=== PATIENT | female | born 1945 | race Caucasian/White ===

== ENCOUNTER 2019-03-29 06:22 | Inpatient (IN) | payer MEDICARE ==
[~2019-03-29] VITALS: Ht 165.1 cm; Wt 69.7 kg
--- NOTE | 2019-03-29 06:35 | NUR ---
bib remsa from home where she is recently been staying with her sister, hospice pt, h/x lung and right breast ca. per ems pt sister found her on her bedroom floor with right ankle swelling and bruising. pt a&ox0 at baseline, 12 lead ekg afib, pt has h/x afib. b/p-170/80, hr-100, 90% on 4l n/c, received breathing t/x per remsa and spo2up to 100% on 4ln/c. pt also received fentanyl 100 mcg enroute. monitors applied, siderails up x2, call light within reach, family at bedside
--- NOTE | 2019-03-29 06:53 | NUR ---
report given to kamilah/dereje griffin
[2019-03-29] MEDS ORDERED: HYDR4TAB48 PO (07:41)
[2019-03-29] MEDS ORDERED: OMEP10CA4 PO (07:41)
[2019-03-29] MEDS ORDERED: METR250T PO (07:41)
[2019-03-29] MEDS ORDERED: DILT30TA33 PO (07:41)
[2019-03-29] MEDS ORDERED: HYDR25TA11 PO (07:41)
[2019-03-29] MEDS ORDERED: LORA2VIA6 PO (07:41)
[2019-03-29] MEDS ORDERED: SENN-88 PO (07:41)
[2019-03-29] MEDS ORDERED: CITA10TA4 PO (07:41)
[2019-03-29] MEDS ORDERED: METH10TA2 PO (07:41)
[2019-03-29] MEDS ORDERED: HALDOL (07:42)
--- NOTE | 2019-03-29 08:09 | NUR ---
IV STARTED. PUREWICK PLACED.
[2019-03-29] MEDS ORDERED: FENTANYL PF 100 MCG/2ML ONE ×5 (08:29→22:59)
[2019-03-29] MEDS ORDERED: FENTANYL PF 100 MCG/2ML IV ONE (08:30)
[2019-03-29] MEDS ORDERED: LORazepam 2 MG/ML, 1ML ONE (08:30)
[2019-03-29] MEDS ORDERED: LORazepam 2 MG/ML, 1ML IVPush ONE (08:30)
[2019-03-29] MEDS ORDERED: SODIUM CHLORIDE FLUSH 10ML SYR IVF ONE (08:30)
--- NOTE | 2019-03-29 08:38 | NUR ---
MEDICATED PER EMAR. LAB AT BEDSIDE. PT TO GO TO CT.
[2019-03-29 08:52] LABS: BASOPHILS # (AUTO) 0.04 x10^3/uL (0-0.1); BASOPHILS % (AUTO) 0 % (0-1); EOSINOPHILS % (AUTO) 0 % (1-7); LYMPHOCYTES # (AUTO) 0.47 x10^3/uL (1-3.4); LYMPHOCYTES % (AUTO) 5 % (22-44); MD NO; MEAN CORPUSCULAR HEMOGLOBIN 24.3 pg (27.0-34.8); MEAN CORPUSCULAR HGB CONC 30.7 g/dL (32.4-35.8); MEAN CORPUSCULAR VOLUME 78.9 fL (80-100); MEAN PLATELET VOLUME 7.2 fL (7.4-10.4); MONOCYTES # (AUTO) 0.71 x10^3/uL (0.2-0.8); MONOCYTES % (AUTO) 7 % (2-9); NEUTROPHILS % (AUTO) 88 % (42-75); PLATELET COUNT 509 x10^3/uL (130-400); RED BLOOD COUNT 4.24 x10^6/uL (3.82-5.3); RED CELL DISTRIBUTION WIDTH 16.6 % (9.6-15.2)
[2019-03-29 09:04] LABS: ALANINE AMINOTRANSFERASE 13 U/L (12-78); ALBUMIN 2.7 g/dL (3.4-5.0); ANION GAP 4 mmol/L (5-15); CALCIUM 9.1 mg/dL (8.5-10.1); CHLORIDE 98 mmol/L (98-107); CREATININE 0.52 mg/dL (0.55-1.02)
[2019-03-29 09:06] LABS: ALKALINE PHOSPHATASE 105 U/L (45-117); BILIRUBIN,TOTAL 0.3 mg/dL (0.2-1.0); TOTAL PROTEIN 7.1 g/dL (6.4-8.2)
--- NOTE | 2019-03-29 09:19 | NUR ---
REPORT GIVEN TO JEAN-CLAUDE WONG ON ONCOLOGY.
--- NOTE | 2019-03-29 09:28 | NUR ---
UA COLLECTED. PT TO GO UPSTAIRS.
[2019-03-29 09:50] LABS: MICROSCOPIC AUTO
[2019-03-29 09:52] LABS: CULTURE INDICATED? YES
[2019-03-29 10:18] VITALS: BP 116/70
[2019-03-29] MEDS ORDERED: LABETALOL 5MG/ML, 20ML IVPush PRN (11:00)
[2019-03-29] MEDS ORDERED: ONDANSETRON ODT 4 MG PO PRN (11:00)
[2019-03-29 11:09] LABS: FREE T4 (FREE THYROXINE) 1.16 ng/dL (0.76-1.46)
[2019-03-29] MEDS ORDERED: ALBUTEROL SULFATE 2.5 MG/3 ML ONE (11:18)
[2019-03-29] MEDS ORDERED: HYDROmorphone 2 MG/ML, 1ML IV PRN (11:30)
[2019-03-29] MEDS: ALBUTEROL SULFATE 2.5 MG/3 ML NPPB SCH ×2 (11:30→19:45)
[2019-03-29] MEDS: LORazepam INTENSOL 2 MG/ML PO PRN ×2 (11:52→17:30)
[2019-03-29] MEDS: D5%-0.45% NACL 1,000 ML IV SCH (12:42)
[2019-03-29 14:26] VITALS: BP 132/71
[2019-03-29] MEDS ORDERED: PROPOFOL 10 MG/ML, 20ML ONE (14:45)
[2019-03-29] MEDS ORDERED: CEFAZOLIN 1,000 MG ONE (14:45)
[2019-03-29] MEDS ORDERED: ALBUTEROL SULFATE 2.5 MG/3 ML NPPB SCH (15:00)
[2019-03-29] MEDS: METHADONE 10 MG TABLET PO SCH ×2 (16:58→22:03)
[2019-03-29] MEDS ORDERED: EPINEPHRINE 1 MG/ML, 1ML ONE (17:59)
[2019-03-29] MEDS ORDERED: BUPIVACAINE/PF 0.5% ONE ×2 (17:59→18:07)
[2019-03-29] MEDS ORDERED: LIDOCAINE 1%, 20ML ONE (18:00)
[2019-03-29] MEDS ORDERED: ACETAMINOPHEN 325 MG TABLET PO PRN (20:30)
[2019-03-29] MEDS ORDERED: OXYcodone 5 MG/5 ML ORAL.SOL UDC PO PRN (20:30)
[2019-03-29] MEDS ORDERED: ONDANSETRON 2MG/ML, 2ML IV PRN (20:30)
[2019-03-29] MEDS ORDERED: ONDANSETRON ODT 8 MG PO PRN (20:30)
[2019-03-29] MEDS ORDERED: PROMETHAZINE 25 MG/ML, 1ML IV PRN (20:30)
[2019-03-29] MEDS ORDERED: OXYcodone 5 MG/5 ML ORAL.SOL UDC ONE (21:46)
[2019-03-29] MEDS ORDERED: HYDROmorphone 2 MG/ML, 1ML ONE ×2 (21:46→22:37)
[2019-03-29] MEDS: HYDROmorphone 2 MG/ML, 1ML IVPush PRN ×8 (21:51→23:03)
[2019-03-29] MEDS: FENTANYL PF 100 MCG/2ML IV PRN ×5 (21:56→23:01)
[2019-03-29] MEDS ORDERED: PROMETHAZINE 25 MG/ML, 1ML ONE (22:44)
[2019-03-30] MEDS ORDERED: HYDROmorphone 2MG TABLET ONE ×3 (00:01→11:23)
[2019-03-30 00:03] VITALS: BP 137/59
[2019-03-30] MEDS: KETOROLAC 30 MG/1 ML IVPush PRN ×4 (00:12→22:45)
[2019-03-30] MEDS: CEFAZOLIN 2,000 MG in SODIUM CHLORIDE 0.9% 50 ML IV SCH ×2 (00:12→09:20)
[2019-03-30] MEDS: HYDROmorphone 4MG TABLET PO PRN ×3 (00:13→11:25)
[2019-03-30 05:08] LABS: MEAN CORPUSCULAR HEMOGLOBIN 24.6 pg (27.0-34.8); MEAN CORPUSCULAR HGB CONC 30.9 g/dL (32.4-35.8); MEAN CORPUSCULAR VOLUME 79.6 fL (80-100); MEAN PLATELET VOLUME 7.3 fL (7.4-10.4); PLATELET COUNT 398 x10^3/uL (130-400); RED BLOOD COUNT 3.47 x10^6/uL (3.82-5.3); RED CELL DISTRIBUTION WIDTH 17.1 % (9.6-15.2)
[2019-03-30 05:12] LABS: ALANINE AMINOTRANSFERASE 10 U/L (12-78); ALBUMIN 2.2 g/dL (3.4-5.0); ANION GAP 0 mmol/L (5-15); CALCIUM 8.6 mg/dL (8.5-10.1); CHLORIDE 101 mmol/L (98-107); CREATININE 0.55 mg/dL (0.55-1.02)
[2019-03-30 05:23] LABS: ALKALINE PHOSPHATASE 80 U/L (45-117); BILIRUBIN,TOTAL 0.4 mg/dL (0.2-1.0); THYROID STIMULATING HORMONE 0.945 mIU/L (0.358-3.740); TOTAL PROTEIN 5.8 g/dL (6.4-8.2)
[2019-03-30] MEDS: D5%-0.45% NACL 1,000 ML IV SCH ×3 (05:46→20:00)
[2019-03-30 05:52] LABS: BASOPHILS # (AUTO) 0.03 x10^3/uL (0-0.1); BASOPHILS % (AUTO) 0 % (0-1); EOSINOPHILS # (AUTO) 0.04 x10^3/uL (0-0.4); EOSINOPHILS % (AUTO) 0 % (1-7); LYMPHOCYTES # (AUTO) 1.95 x10^3/uL (1-3.4); LYMPHOCYTES % (AUTO) 22 % (22-44); MD SCAN; MONOCYTES # (AUTO) 1.69 x10^3/uL (0.2-0.8); MONOCYTES % (AUTO) 19 % (2-9); NEUTROPHILS # (AUTO) 5.22 x10^3/uL (1.8-6.8); NEUTROPHILS % (AUTO) 59 % (42-75)
[2019-03-30] MEDS: ALBUTEROL SULFATE 2.5 MG/3 ML NPPB SCH ×2 (06:47→20:02)
[2019-03-30] MEDS: HYDROmorphone 2 MG/ML, 1ML IV PRN (06:54)
[2019-03-30 07:30] VITALS: BP 125/75
[2019-03-30] MEDS: SENNA/DOCUSATE TABLET PO SCH (09:20)
[2019-03-30] MEDS: METHADONE 10 MG TABLET PO SCH ×3 (09:21→21:40)
[2019-03-30] MEDS: SODIUM CHLORIDE 0.45% 1,000 ML IV SCH ×2 (09:21→17:20)
[2019-03-30] MEDS: ONDANSETRON 2MG/ML, 2ML IVPush PRN (12:54)
[2019-03-30 14:23] VITALS: BP 118/62
[2019-03-30] MEDS ORDERED: LORazepam 2 MG/ML, 1ML ONE (17:12)
[2019-03-30] MEDS: LORazepam INTENSOL 2 MG/ML PO PRN (17:14)
[2019-03-30 18:39] VITALS: BP 118/68
[2019-03-31] MEDS ORDERED: LORazepam 0.5MG TABLET ONE (00:46)
[2019-03-31] MEDS: LORazepam INTENSOL 2 MG/ML PO PRN (00:50)
[2019-03-31] MEDS: SODIUM CHLORIDE 0.45% 1,000 ML IV SCH ×3 (00:57→16:00)
[2019-03-31 01:35] VITALS: BP 119/67
[2019-03-31] MEDS: KETOROLAC 30 MG/1 ML IVPush PRN ×3 (05:22→23:08)
[2019-03-31 05:28] LABS: BASOPHILS # (AUTO) 0.01 x10^3/uL (0-0.1); BASOPHILS % (AUTO) 0 % (0-1); EOSINOPHILS % (AUTO) 1 % (1-7); LYMPHOCYTES # (AUTO) 1.06 x10^3/uL (1-3.4); LYMPHOCYTES % (AUTO) 13 % (22-44); MD NO; MEAN CORPUSCULAR HGB CONC 31.3 g/dL (32.4-35.8); MEAN CORPUSCULAR VOLUME 79.7 fL (80-100); MEAN PLATELET VOLUME 7.9 fL (7.4-10.4); MONOCYTES # (AUTO) 1.42 x10^3/uL (0.2-0.8); MONOCYTES % (AUTO) 18 % (2-9); NEUTROPHILS # (AUTO) 5.52 x10^3/uL (1.8-6.8); NEUTROPHILS % (AUTO) 68 % (42-75); PLATELET COUNT 417 x10^3/uL (130-400); RED BLOOD COUNT 3.15 x10^6/uL (3.82-5.3); RED CELL DISTRIBUTION WIDTH 16.6 % (9.6-15.2)
[2019-03-31 05:29] LABS: ALBUMIN 2.1 g/dL (3.4-5.0); ANION GAP 3 mmol/L (5-15); CALCIUM 8.4 mg/dL (8.5-10.1); CHLORIDE 100 mmol/L (98-107); CREATININE 0.33 mg/dL (0.55-1.02)
[2019-03-31] MEDS: D5%-0.45% NACL 1,000 ML IV SCH (06:00)
[2019-03-31] MEDS: ALBUTEROL SULFATE 2.5 MG/3 ML NPPB SCH ×2 (06:58→21:00)
[2019-03-31 08:03] VITALS: BP 123/66
[2019-03-31] MEDS ORDERED: METHADONE 5 MG TABLET ONE ×2 (08:35→08:36)
[2019-03-31] MEDS: SENNA/DOCUSATE TABLET PO SCH (08:38)
[2019-03-31] MEDS: METHADONE 10 MG TABLET PO SCH ×3 (08:38→20:49)
[2019-03-31] MEDS ORDERED: POTASSIUM CHLORIDE 40 MEQ in SODIUM CHLORIDE 0.9% 500 ML IV ONE (11:30)
[2019-03-31] MEDS ORDERED: IRON SUCROSE COMPLEX 100MG/5ML IV ONE (11:30)
[2019-03-31 12:59] VITALS: BP 122/60
[2019-03-31] MEDS: POLYETHYLENE GLYCOL 17 GM PACKET PO PRN (13:33)
[2019-03-31] MEDS: HYDROmorphone 2 MG/ML, 1ML IV PRN ×2 (13:33→21:40)
[2019-03-31 19:01] VITALS: BP 167/58
[2019-03-31] MEDS ORDERED: HYDROmorphone 2MG TABLET ONE (21:28)
[2019-04-01] MEDS: SODIUM CHLORIDE 0.45% 1,000 ML IV SCH ×3 (00:21→16:33)
[2019-04-01] MEDS: ONDANSETRON 2MG/ML, 2ML IVPush PRN (00:21)
[2019-04-01] MEDS ORDERED: LORazepam 0.5MG TABLET ONE ×2 (00:26→20:37)
[2019-04-01] MEDS: LORazepam INTENSOL 2 MG/ML PO PRN ×2 (00:31→20:41)
[2019-04-01] MEDS: HYDROmorphone 2 MG/ML, 1ML IV PRN ×4 (01:42→18:31)
[2019-04-01 01:54] VITALS: BP 153/64
[2019-04-01] MEDS: ALBUTEROL SULFATE 2.5 MG/3 ML NPPB SCH ×2 (07:07→19:19)
[2019-04-01] MEDS: SENNA/DOCUSATE TABLET PO SCH (09:39)
[2019-04-01] MEDS: METHADONE 10 MG TABLET PO SCH ×3 (09:39→20:40)
[2019-04-01] MEDS: KETOROLAC 30 MG/1 ML IVPush PRN ×3 (12:18→22:10)
[2019-04-01] MEDS ORDERED: IRON SUCROSE COMPLEX 100MG/5ML IV ONE (14:00)
[2019-04-01 14:36] VITALS: BP 157/77
[2019-04-01 20:21] VITALS: BP 155/57
[2019-04-02 00:52] VITALS: BP 147/72
[2019-04-02] MEDS: HYDROmorphone 2 MG/ML, 1ML IV PRN ×2 (01:25→05:10)
[2019-04-02] MEDS: SODIUM CHLORIDE 0.45% 1,000 ML IV SCH (01:29)
[2019-04-02] MEDS ORDERED: LORazepam 0.5MG TABLET ONE (02:54)
[2019-04-02] MEDS: LORazepam INTENSOL 2 MG/ML PO PRN ×2 (02:57→20:42)
[2019-04-02] MEDS: KETOROLAC 30 MG/1 ML IVPush PRN ×2 (06:29→19:42)
[2019-04-02] MEDS: ALBUTEROL SULFATE 2.5 MG/3 ML NPPB SCH ×2 (07:23→21:00)
[2019-04-02 08:00] VITALS: BP 151/67
[2019-04-02] MEDS ORDERED: LORazepam 0.5MG TABLET PO ONE (08:00)
[2019-04-02] MEDS ORDERED: FUROSEMIDE 20 MG/2 ML IV SCH (08:00)
[2019-04-02] MEDS: SENNA/DOCUSATE TABLET PO SCH (10:00)
[2019-04-02] MEDS: METHADONE 10 MG TABLET PO SCH ×3 (10:01→20:43)
[2019-04-02] MEDS: POLYETHYLENE GLYCOL 17 GM PACKET PO PRN (10:01)
[2019-04-02] MEDS: ONDANSETRON 2MG/ML, 2ML IVPush PRN (11:03)
[2019-04-02 12:00] VITALS: BP 149/77
[2019-04-02] MEDS ORDERED: HYDROmorphone 2MG TABLET ONE ×2 (17:39→22:28)
[2019-04-02] MEDS: HYDROmorphone 4MG TABLET PO PRN ×2 (17:41→22:29)
[2019-04-02 19:48] VITALS: BP 138/67
[2019-04-03 01:39] VITALS: BP 132/63
[2019-04-03] MEDS ORDERED: HYDROmorphone 2MG TABLET ONE ×5 (05:38→22:32)
[2019-04-03] MEDS: HYDROmorphone 4MG TABLET PO PRN ×5 (05:39→22:34)
[2019-04-03 06:53] VITALS: BP 146/66
[2019-04-03] MEDS: ALBUTEROL SULFATE 2.5 MG/3 ML NPPB SCH ×2 (07:10→19:10)
[2019-04-03] MEDS ORDERED: BISACODYL 10 MG SUPP ONE (08:25)
[2019-04-03] MEDS ORDERED: BISACODYL 10 MG SUPP PR PRN (08:30)
[2019-04-03] MEDS: SENNA/DOCUSATE TABLET PO SCH (09:00)
[2019-04-03] MEDS: METHADONE 10 MG TABLET PO SCH ×3 (09:00→21:06)
[2019-04-03] MEDS ORDERED: FUROSEMIDE 20 MG/2 ML IV ONE (11:30)
[2019-04-03] MEDS: ONDANSETRON 2MG/ML, 2ML IVPush PRN (12:04)
[2019-04-03] MEDS: LORazepam INTENSOL 2 MG/ML PO PRN ×3 (12:04→22:34)
[2019-04-03 12:33] VITALS: BP 127/71
[2019-04-03 18:56] VITALS: BP 140/64
[2019-04-04 02:17] VITALS: BP 130/59
[2019-04-04] MEDS ORDERED: HYDROmorphone 2MG TABLET ONE ×4 (05:52→15:48)
[2019-04-04] MEDS: HYDROmorphone 4MG TABLET PO PRN ×4 (05:53→15:53)
[2019-04-04] MEDS: ALBUTEROL SULFATE 2.5 MG/3 ML NPPB SCH (06:44)
[2019-04-04 07:04] VITALS: BP 150/77
[2019-04-04] MEDS ORDERED: SENN1TAB19 PO (08:11)
[2019-04-04] MEDS ORDERED: POLY17PO5 PO (08:11)
[2019-04-04] MEDS: ONDANSETRON 2MG/ML, 2ML IVPush PRN (08:30)
[2019-04-04] MEDS: METHADONE 10 MG TABLET PO SCH ×2 (08:30→15:53)
[2019-04-04] MEDS: LORazepam INTENSOL 2 MG/ML PO PRN (08:30)
[2019-04-04] MEDS: SENNA/DOCUSATE TABLET PO SCH (08:30)
[2019-04-04] MEDS: HYDROmorphone 2 MG/ML, 1ML IV PRN ×3 (08:40→14:56)
[2019-04-04 12:28] VITALS: BP 145/63
== END 2019-04-04 17:28 | disposition hospice, home (50) | DRG 492 ==
LOC: ED 06:38 → EDIP 08:51 → 3NW 09:35
PROVIDERS: ADMIT Internal Medicine; ATTEND Internal Medicine
PROC: 0QSG04Z Reposition Right Tibia with Internal Fixation Device, Open Approach (ICD-10-PCS; 2019-03-29)
PROC: 0SSF04Z Reposition Right Ankle Joint with Internal Fixation Device, Open Approach (ICD-10-PCS; 2019-03-29)
PROC: 0QSJ04Z Reposition Right Fibula with Internal Fixation Device, Open Approach (ICD-10-PCS; principal; 2019-03-29 18:30)
DX: S82.841A Displaced bimalleolar fracture of right lower leg, initial encounter for closed fracture (principal); G93.41 Metabolic encephalopathy; C34.90 Malignant neoplasm of unspecified part of unspecified bronchus or lung; E44.0 Moderate protein-calorie malnutrition; Z51.5 Encounter for palliative care; Z66 Do not resuscitate; C50.919 Malignant neoplasm of unspecified site of unspecified female breast; D50.9 Iron deficiency anemia, unspecified; D72.829 Elevated white blood cell count, unspecified; E78.5 Hyperlipidemia, unspecified; E83.39 Other disorders of phosphorus metabolism; E86.0 Dehydration; F03.90 Unspecified dementia, unspecified severity, without behavioral disturbance, psychotic disturbance, mood disturbance, and anxiety; F41.9 Anxiety disorder, unspecified; G89.29 Other chronic pain; I10 Essential (primary) hypertension; W18.30XA Fall on same level, unspecified, initial encounter; Y93.89 Activity, other specified; Y92.89 Other specified places as the place of occurrence of the external cause; Y99.8 Other external cause status; Z80.0 Family history of malignant neoplasm of digestive organs; Z80.3 Family history of malignant neoplasm of breast; Z82.49 Family history of ischemic heart disease and other diseases of the circulatory system; Z83.3 Family history of diabetes mellitus; Z85.118 Personal history of other malignant neoplasm of bronchus and lung; Z86.73 Personal history of transient ischemic attack (TIA), and cerebral infarction without residual deficits; Z90.710 Acquired absence of both cervix and uterus; Z87.891 Personal history of nicotine dependence; Z92.3 Personal history of irradiation; Z90.49 Acquired absence of other specified parts of digestive tract; Z88.2 Allergy status to sulfonamides; Z88.0 Allergy status to penicillin; Z79.899 Other long term (current) drug therapy; Z68.25 Body mass index [BMI] 25.0-25.9, adult
CPT/HCPCS: 36415; 71045; 76000; 80048; 80053; 81001; 82040; 82728; 83540; 83550; 83690; 83735; 84100; 84439; 84443; 85025; 87086; 93005; 94640; 96374; 96375; 99285; C1713; G0378; J0171; J0690; J1170; J1756; J1885; J2405; J2550; J2704; J3010; J3480; J7613; C1769; J1940; J2060; J7040